=== PATIENT | male | born 1955 | race Caucasian/White ===

== ENCOUNTER → 2016-05-16 | Outpatient (CLI) | payer BC ==
[~2016-05-16] MED LIST: AGM875 PO; CIPR1TAB10 PO; NXM/40 PO; PRLSR20 PO; PROB1TAB16 PO
[2016-05-16 17:21] LABS: BASO % 0.4 %; BASO ABS # 0.05 K/uL (0-0.2); COMPLETE YES; EOS % 0.3 %; HEMATOCRIT 44.2 % (42-52); IG% 0.2 %; LYMPH % 9.9 %; LYMPH ABS # 1.37 K/uL (1.2-3.4); MEAN CELL VOLUME 86.7 fL (80-100); MEAN CORPUSCULAR HEMOGLOBIN 29.4 pg (25-34); MEAN CORPUSCULAR HGB CONC 33.9 g/dl (32-36); MEAN PLATELET VOLUME 11.4 fL (7.4-10.4); MONO % 6.5 %; NEUT % 82.7 %; PLATELET COUNT 308 K/uL (130-400); WHITE BLOOD COUNT 13.79 K/uL (4.8-10.8)
[2016-05-16 17:47] LABS: MANUAL MICROSCOPIC REQUIRED? NO; REVIEW REQ? NO; URINE APPEARANCE CLEAR (CLEAR); URINE BILIRUBIN NEG (NEG); URINE COLOR DK YELLOW; URINE EPITHELIAL CELL AUTO 0-5 /lpf (0-5); URINE NITRITE POS (NEG); URINE SPECIFIC GRAVITY 1.029 (1.000-1.030); UROBILINOGEN NEG (NEG)
[2016-05-16 18:18] LABS: ALT/SGPT 36 U/L (12-78); AMYLASE 41 U/L (25-115); AST/SGOT 17 U/L (15-37); BLOOD UREA NITROGEN 12 mg/dl (7-18); BUN/CREATININE RATIO 9.3 (10-20); CALCIUM 8.8 mg/dl (8.5-10.1); CARBON DIOXIDE 22 mmol/L (21-32); CHLORIDE 107 mmol/L (98-107); GLUCOSE 173 mg/dl (70-99); POTASSIUM 3.5 mmol/L (3.5-5.1); SODIUM 141 mmol/L (136-145)
[2016-05-16 18:20] LABS: ALKALINE PHOSPHATASE 83 U/L (45-117)
== END | disposition home or self-care (01) ==
LOC: C.LABBC 14:09
PROVIDERS: ATTEND Family Medicine
DX: R10.9 Unspecified abdominal pain (principal)

== ENCOUNTER → 2016-05-20 | Outpatient (CLI) | payer BC ==
[~2016-05-20] MED LIST changes: +OPTIRAY 320 IV PRN
--- NOTE | 2016-05-20 11:37 | DIAGNOSTIC IMAGING REPORT ---
CT ABD/PELVIS IV AND ORAL CONT CLINICAL HISTORY: Diarrhea and diffuse abdominal pain COMPARISON STUDY: 04/22/2007 TECHNIQUE: Following the IV administration of 119 mL of Optiray-320, CT scan of the abdomen and pelvis was performed from the lung bases to the proximal femurs. Images are reviewed in the axial, sagittal, and coronal planes. IV contrast was administered without complication. CT DOSE: 491.77 mGycm FINDINGS: Lower chest: The heart is normal in size and configuration, without pericardial effusion. The lung bases and pleural spaces are clear. Liver: The contrast-enhanced liver is normal in size, contour, and attenuation. There is no intrahepatic biliary ductal dilatation. The hepatic veins and portal veins are patent. Gallbladder: Unremarkable. Spleen: Normal in size and attenuation. Pancreas: Unremarkable. Adrenal glands: Unremarkable. Kidneys: There is symmetric renal cortical enhancement. The kidneys are normal in size without hydronephrosis. Bowel: There are no transition zones to indicate bowel obstruction. The appendix appears normal. There is sigmoid diverticulosis. There are no acute peridiverticular inflammatory changes. Peritoneum: There is no intraperitoneal free air or abdominal ascites. Vasculature: The abdominal aorta is normal in course and caliber. Adenopathy: None. Pelvic viscera: The bladder, and pelvic viscera are unremarkable. Skeletal structures: No destructive osseous lesions are seen. IMPRESSION: 1. No acute intra-abdominal or pelvic findings 2. No evidence of bowel obstruction. No evidence of free air 3. Normal appendix 4. Diverticulosis. No evidence of acute diverticulitis. Electronically signed by: Jaya Adorno M.D. 05/20/2016 11:35 AM Dictated Date/Time: 05/20/2016 11:30 AM
== END | disposition home or self-care (01) ==
LOC: C.CTS 08:49
PROVIDERS: ATTEND Family Medicine
DX: R19.7 Diarrhea, unspecified (principal); R10.9 Unspecified abdominal pain; K57.30 Diverticulosis of large intestine without perforation or abscess without bleeding

== ENCOUNTER → 2016-07-06 | Day surgery (SDC) | payer BC ==
[2016-06-09 08:59] VITALS: BMI 22.0
[~2016-07-06] VITALS: Ht 180.3 cm; Wt 72.7 kg
[~2016-07-06] MED LIST changes: -AGM875 PO; +LIDOCAINE HCL 2% 2 ML VIAL (20MG/ML) ONE; +MIDAZOLAM HCL 1 MG/ML 2ML VIAL ONE; -NXM/40 PO; +ONDANSETRON INJ 2 MG/ML 2 ML VIAL ONE; -OPTIRAY 320 IV PRN; +PROPOFOL IV EMULSION 10 MG/ML 20 ML VIAL IV ONE; +SODIUM CHLORIDE 0.9% 500ML 500 ML IV ONE
[2016-07-06 12:26] VITALS: Ht 180.3 cm; Wt 72.7 kg
[2016-07-06 12:37] VITALS: TEMP 36.8
--- NOTE | 2016-07-06 12:57 | Endo History and Physical ---
History & Physical Date of Service: Jul 06, 2016. Chief Complaint: ABDOMINAL PAIN, RECTAL LESION Referring Physician: DR AMBER MADRID History of Present Illness 60 yo CM who presents for colonoscopy secondary to abdominal pain and rectal lesion. Past Surgical History Hx Cardiac Surgery: No Hx Internal Defibrillator: No Hx Pacemaker: No Hx Abdominal Surgery: No Hx of Implantable Prosthesis: No Hx Post-Op Nausea and Vomiting: No Hx Cancer Surgery: No Hx Thoracic Surgery: No Hx Orthopedic: No Hx Urinary Tract Surgery: No Family History None Social History Smoking Status: Never Smoker Hx Substance Use: No Hx Alcohol Use: No Allergies Coded Allergies: No Known Allergies (Verified , NONE, 07/06/16) Current Medications Reported Home Medications Medications Dose Route/Sig Max Daily Dose Days Date Category Probiotic (Probiotic Product) 1 Tab Tab 1 Tab PO QAM 06/09/16 Reported Prilosec (Omeprazole) 20 Mg Capcr 20 Mg PO QAM 06/09/16 Reported Vital Signs Weight (Kilograms): 72.73 Height (Feet): 5 Height (Inches): 11 Date Time Temp Pulse Resp B/P Pulse Ox O2 Delivery O2 Flow Rate FiO2 07/06/16 12:37 36.8 65 20 127/78 100 Room Air Physical Exam General Appearance: WD/WN, no apparent distress Respiratory/Chest: Auscultation: breath sounds normal Cardiovascular: Heart Auscultation: RRR Abdomen: Bowel Sounds: normal Inspection & Palpation: soft, non-distended, no tenderness, guarding & rebound Assessment and Plan Assessment: 60 yo CM who presents for colonoscopy secondary to abdominal pain and rectal lesion. Plan: Proceed with colonoscopy.
--- NOTE | 2016-07-06 13:11 | Discharge Instructions ---
Endoscopy Patient Instructions Date / Procedure(s) Performed Jul 06, 2016. Colonoscopy Allergy Information Coded Allergies: No Known Allergies (Verified , NONE, 07/06/16) Discharge Date / Findings Jul 06, 2016. Inflammation of Anal canal Random colon biopsies Stool studies collected Medication Instructions OK to resume all medications today as prescribed Reported Home Medications Medications Dose Route/Sig Max Daily Dose Days Date Category Probiotic (Probiotic Product) 1 Tab Tab 1 Tab PO QAM 06/09/16 Reported Prilosec (Omeprazole) 20 Mg Capcr 20 Mg PO QAM 06/09/16 Reported Provider Instructions Activity Restrictions - No exercising or heavy lifting for 24 hours. - Do not drink alcohol the day of the procedure. - Do not drive a car or operate machinery until the day after the procedure. - Do not make any important decisions or sign important papers in 24 hours after the procedure. Following Day: - Return to full activity which may include returning to work/school. Diet Start your diet with liquids and light foods (jello, soup, juice, toast). Then eat your usual diet if not nauseated. Treatment For Common After Affects For mild abdominal pain, bloating, or excessive gas: - Rest - Eat lightly - Lie on right side Schedule Dermatology evaluation for anal canal inflammation Follow-Up Information Follow-up with DR AMBER MADRID as scheduled Anesthesia Information What You Should Know You have had a procedure that required some medicine to reduce anxiety and discomfort. This treatment is called moderate sedation. After receiving the treatment, you may be sleepy, but you will be able to breathe on your own. The effects of the treatment may last for several hours. Follow these instructions along with Activity/Diet recommendations noted above: * Do NOT do anything where dizziness or clumsiness would be dangerous. * Rest quietly at home today, then you can be up and about tomorrow. * Have a responsible person stay with you the rest of today. * You may have had an I.V. today. If so, you may take the dressing off later today. Recommendations Call your doctor if: * Trouble breathing * Continuous vomiting for more than 24 hours * Temperature above 101 degrees * Severe abdominal pain or bloating * Pain not relieved by pain medicine ordered * There is increased drainage or redness from any incision * A large amount of rectal bleeding greater than 2-3 tablespoons. (If you had a polyp/s removed or have hemorrhoids, a small amount of blood - from the rectum is to be expected.) * You have any unanswered questions or concerns. IN THE EVENT OF A SERIOUS EMERGENCY, GO TO THE NEAREST EMERGENCY ROOM Your discharge instructions were prepared by provider Mathieu Hicks. Patient Instructions Signature Page Weston Bright Patient (or Guardian) Signature/Date: I have read and understand the instructions given to me by my caregivers. Caregiver/RN/Doctor Signature/Date: The above-named patient and/or guardian has received patient instructions on this date. + Original Patient Signature Page (only) stays with chart. Please make copy for patient.
--- NOTE | 2016-07-06 13:22 | GI REPORT ---
Procedure Date: 07/06/2016 12:40 PM Procedure: Colonoscopy Indications: Generalized abdominal pain, Chronic diarrhea Medicines: Monitored Anesthesia Care Complications: No immediate complications. Estimated Blood Loss: Estimated blood loss: none. Procedure: Pre-Anesthesia Assessment: - Prior to the procedure, a History and Physical was performed, and patient medications and allergies were reviewed. The patient's tolerance of previous anesthesia was also reviewed. The risks and benefits of the procedure and the sedation options and risks were discussed with the patient. All questions were answered, and informed consent was obtained. Prior Anticoagulants: The patient has taken no previous anticoagulant or antiplatelet agents. ASA Grade Assessment: II - A patient with mild systemic disease. After reviewing the risks and benefits, the patient was deemed in satisfactory condition to undergo the procedure. After I obtained informed consent, the scope was passed under direct vision. Throughout the procedure, the patient's blood pressure, pulse, and oxygen saturations were monitored continuously. The Scope was introduced through the anus and advanced to the terminal ileum. The colonoscopy was performed without difficulty. The patient tolerated the procedure well. The quality of the bowel preparation was good. The terminal ileum, ileocecal valve, appendiceal orifice, and rectum were photographed. Findings: The colon (entire examined portion) appeared normal. Several random biopsies were obtained with cold forceps for histology in the entire colon. Fluid aspiration for cytology was performed. The perianal exam findings include a perianal rash. Impression: - The entire examined colon is normal. Fluid aspiration performed. - Perianal rash found on perianal exam. - Several random biopsies were obtained in the entire colon. Recommendation: - Resume previous diet. - Continue present medications. - Await pathology results. - Return to primary care physician as previously scheduled. Mathieu Hicks DO 07/06/2016 1:21:26 PM This report has been signed electronically. Note Initiated On: 07/06/2016 12:40 PM I attest to the content of the Intraoperative Record and orders documented therein, exceptions below
--- NOTE | 2016-07-06 13:37 | Anesthesiology Progress Note ---
Anesthesia Post Op Note Date & Time Jul 06, 2016 at 13:37 Vital Signs Pain Intensity: 0 Vital Signs Past 12 Hours Date Time Temp Pulse Resp B/P Pulse Ox O2 Delivery O2 Flow Rate FiO2 07/06/16 13:30 70 20 106/55 97 Room Air 07/06/16 13:15 62 20 103/48 98 Room Air 07/06/16 12:37 36.8 65 20 127/78 100 Room Air Notes Mental Status: alert / awake / arousable, participated in evaluation Pt Amnestic to Procedure: Yes Nausea / Vomiting: adequately controlled Pain: adequately controlled Airway Patency, RR, SpO2: stable & adequate BP & HR: stable & adequate Hydration State: stable & adequate Anesthetic Complications: no major complications apparent
[2016-07-06 13:45] VITALS: BP 115/72; PULSE 63; O2SAT 100
== END | disposition home or self-care (01) ==
LOC: C.GI 12:01
PROVIDERS: ATTEND Internal Medicine
DX: R19.7 Diarrhea, unspecified (principal); R10.31 Right lower quadrant pain; R10.32 Left lower quadrant pain; K62.9 Disease of anus and rectum, unspecified; M54.5 Low back pain

== ENCOUNTER → 2016-12-05 | Outpatient (CLI) | payer BC ==
[~2016-12-05] MED LIST changes: -CIPR1TAB10 PO; -LIDOCAINE HCL 2% 2 ML VIAL (20MG/ML) ONE; -MIDAZOLAM HCL 1 MG/ML 2ML VIAL ONE; -ONDANSETRON INJ 2 MG/ML 2 ML VIAL ONE; -PROPOFOL IV EMULSION 10 MG/ML 20 ML VIAL IV ONE; -SODIUM CHLORIDE 0.9% 500ML 500 ML IV ONE
[2016-12-05 09:38] LABS: BASO % 0.8 %; BASO ABS # 0.06 K/uL (0-0.2); COMPLETE YES; EOS % 2.5 %; HEMATOCRIT 45.8 % (42-52); IG% 0.3 %; LYMPH % 37.1 %; LYMPH ABS # 2.66 K/uL (1.2-3.4); MEAN CELL VOLUME 85.1 fL (80-100); MEAN CORPUSCULAR HEMOGLOBIN 29.2 pg (25-34); MEAN CORPUSCULAR HGB CONC 34.3 g/dl (32-36); MEAN PLATELET VOLUME 11.1 fL (7.4-10.4); MONO % 8.8 %; NEUT % 50.5 %; PLATELET COUNT 336 K/uL (130-400); RED BLOOD COUNT 5.38 M/uL (4.7-6.1); WHITE BLOOD COUNT 7.17 K/uL (4.8-10.8)
[2016-12-05 10:01] LABS: BLOOD UREA NITROGEN 14 mg/dl (7-18); BUN/CREATININE RATIO 11.4 (10-20); CALCIUM 8.9 mg/dl (8.5-10.1); CARBON DIOXIDE 29 mmol/L (21-32); CHLORIDE 107 mmol/L (98-107); CHOLESTEROL 170 mg/dl (0-200); GLUCOSE 90 mg/dl (70-99); POTASSIUM 3.8 mmol/L (3.5-5.1); SODIUM 141 mmol/L (136-145)
[2016-12-05 10:11] LABS: CHOLESTEROL/HDL RATIO 2.7; HDL CHOLESTEROL 63 mg/dl; LDL CHOLESTEROL CALCULATED 82 mg/dl; TRIGLYCERIDES 123 mg/dl (0-150); VERY LOW DENSITY LIPOPROT CALC 25 mg/dl
== END | disposition home or self-care (01) ==
LOC: C.LAB1850 07:35
PROVIDERS: ATTEND Family Medicine
DX: Z00.00 Encounter for general adult medical examination without abnormal findings (principal); Z12.5 Encounter for screening for malignant neoplasm of prostate; Z13.220 Encounter for screening for lipoid disorders; E04.1 Nontoxic single thyroid nodule

== ENCOUNTER → 2017-04-07 | Outpatient (CLI) | payer BC | END | disposition home or self-care (01) | LOC: C.LABSPEC 17:36 | PROVIDERS: ATTEND Nurse Practitioner Family | DX: R30.0 Dysuria (principal) ==

== ENCOUNTER → 2017-07-04 | Outpatient (CLI) | payer BC ==
--- NOTE | 2017-07-04 08:26 | DIAGNOSTIC IMAGING REPORT ---
KUB CLINICAL HISTORY: 61 years-old Male presenting with N40.0 Benign prostate [id number]. TECHNIQUE: Single supine view of the abdomen was obtained. COMPARISON: 05/20/2016. FINDINGS: Nonobstructive bowel gas pattern. Mild stool burden. No gross pneumoperitoneum. Allowing for bowel gas and stool, no calcifications to suggest nephrolithiasis. Calcifications in the midline pelvis may be intraprostatic. Atherosclerosis. Osseous structures normal. Lung bases clear. IMPRESSION: 1. No acute intra-abdominal pathology. 2. Intraprostatic calcifications may relate to the presence of benign prostatic hyperplasia. Electronically signed by: Art Ramos M.D. 07/04/2017 8:24 AM Dictated Date/Time: 07/04/2017 8:23 AM
== END | disposition home or self-care (01) ==
LOC: C.RAD 07:51
PROVIDERS: ATTEND Urology
DX: N40.0 Benign prostatic hyperplasia without lower urinary tract symptoms (principal)

== ENCOUNTER 2018-11-24 09:22 | Inpatient (IN) ==
--- NOTE | 2018-11-24 09:33 | Emergency Department Note ---
ED Provider Note CHIEF COMPLAINT: Right flank pain, nausea and vomiting HISTORY OF PRESENTING ILLNESS: This is a 63-year-old male past medical history significant for GERD and kidney stones, who presents to the emergency department by private vehicle with complaint of severe right sided flank pain, nausea and vomiting. The patient was evaluated in the emergency department on 11/23 and diagnosed with a right-sided kidney stone. He states he has been taking oxycodone, ibuprofen and Tylenol and using Zofran, but his pain has been unrelieved and his nausea vomiting has been uncontrolled. He denies any fevers or chills. He denies any chest pain, shortness of breath, dizziness or syncope, headaches, diarrhea or constipation, gross hematuria, or unusual rash. He reports a history of frequent kidney stones followed by Dr. Vega for this, he denies any problems passing stones in the past and has never required intervention previously. REVIEW OF SYSTEMS: A complete 10 point review of systems was reviewed with the patient with pertinent positives and negatives as per history of present illness. All else were negative. PAST MEDICAL HISTORY: GERD, kidney stones SOCIAL HISTORY: Lives at home with his spouse, denies tobacco use, reports occasional alcohol use ALLERGIES: No known allergies PHYSICAL EXAM: CONSTITUTIONAL: Pleasant and cooperative. Nontoxic-appearing and in no acute distress, but appears significantly uncomfortable from pain. Moderately dehydrated. HEENT: Normocephalic, atraumatic. PERRL, EOMI. Pharynx normal. Dry mucous me mories. NECK: Supple, full active range of motion without discomfort. RESPIRATORY: Clear to auscultation bilaterally with no wheezing, crackles, rhonchi or stridor. Equal expansion bilaterally. CARDIOVASCULAR: Regular rate and rhythm with no murmurs, rubs or gallops. Normal peripheral perfusion. No edema. GASTROINTESTINAL: Right flank and lower quadrant abdominal pain, positive guarding. No rebound tenderness. Abdomen is soft and nondistended. No palpable masses or HSM. Bowel sounds present in all quadrants. Right-sided CVA tenderness. MUSCULOSKELETAL: Full range of motion of all joints without discomfort. INTEGUMENTARY: No rash or other significant dermatologic conditions noted. NEUROLOGIC: Alert and oriented X 4 with normal affect. Normal strength and sensation in all 4 tremors. Normal speech. Normal gait observed. ED COURSE AND MEDICAL DECISION MAKING: CC: Patient presenting with complaint of right flank pain, nausea and vomiting DIFFERENTIAL DIAGNOSIS: Includes, but not limited to ureteral stone, UTI, pyelonephritis, INTERPRETATION OF LABS: Leukocytosis, no anemia, normal platelets, no significant electrolyte abnormalities, BUN and creatinine slightly elevated (t his appears improved from previous labs), elevated T bili, liver enzymes otherwise normal, normal lipase. UA shows large ketones and large blood, appears to be negative for infection. Urine culture pending. IMAGING: EXAMINATION: RENAL ULTRASOUND CLINICAL HISTORY: right flank pain, 3mm dist ureteral stone COMPARISON STUDY: CT scan dated 11/23/2018 FINDINGS: The right kidney measures 12.2 cm. The left kidney measures 10.8 cm. There is mild dilatation of the right renal pelvis and proximal ureter. There is trace fluid adjacent to the lower pole. There is no left-sided hydronephrosis. There are no renal masses. Neither ureteral jet was visualized. IMPRESSION : 1. Mild dilatation of the right renal pelvis and proximal right ureter. Trace fluid adjacent the lower pole of the right kidney. 2. Neither ureteral jet was visualized. EKG: Shows sinus bradycardia with a rate of 46 bpm, normal intervals, no ST or T wave abnormalities, no ectopy, rate has decreased by 28 bpm, no other significant change when compared to previous EKG from 11/16/2008 by my interpretation. MEDICATION RECONCILIATION: I attest that I have personally reviewed the patient's current medication list. INITIAL VITAL SIGNS REVIEW: I reviewed the patient's initial vital signs and interpret them as follows: T: Afebrile; BP: Hypertensive; HR: Bradycardic; RR: Within normal limits; Pulse Ox: Within normal limits on room air. Blood pressure screening: The patient was found to have an elevated blood pressure, which was felt to be situational. MDM SUMMARY: Patient was evaluated at bedside, history and physical exam performed. Patient is alert and oriented, in no acute distress, but appears uncomfortable from pain, pacing in the room and holding his right side. Patient is tender to palpation in the right flank and right lower quadrant and also has some mild right CVA tenderness. Patient is afebrile and nontoxic-appearing. He does appear to be moderately dehydrated. Orders were placed at bedside for labs, UA, IV fluid bolus for hydration, IV Toradol for pain, IV Zofran for nausea, renal ultrasound to evaluate for worsening hydronephrosis secondary to known right-sided ureteral stone. Patient discussed with Dr. Kern, who agrees with my assessment, plan, and disposition. Labs and imaging reviewed as above, labs notable for some mild leukocytosis and elevated T bili, which I suspect is most likely related to frequent vomiting and dehydration. UA shows large ketones and blood, no apparent infection, culture pending. Renal ultrasound shows continued mild hydronephrosis, this does not appear to be significantly changed from CT imaging. Patient reassessed multiple times throughout ED stay, he remains in significant pain and has had persistent nausea and vomiting. He was given additional medication with IV morphine, IV Phenergan, and IV Ofirmev, and reassessed multiple times after these interventions. Patient does feel slightly improved, but continues to complain of severe pain and intermittent nausea with dry heaves. Given his persistent symptoms in the setting of an obstructing stone, I felt the patient would benefit from admission and he was agreeable to this plan. I spoke with Dr. Fitzgerald, urology, who agreed with the plan to bring the patient in for continued pain and nausea management. He will evaluate the patient in the morning for possible need of intervention. I spoke on the phone with Dr. Rivers, [facility], who agrees to evaluate the patient for admission. The patient was updated on all results and plan of care, he verbalized understanding. The patient was stable at time of admission. The chart was completed utilizing [employer] I/O Speech voice recognition software. Grammatical errors, random word insertions, pronoun errors, and incomplete sentences are an occasional consequence of this system due to software limitations, ambient noise, and hardware issues. Any formal questions or concerns about the content, text, or information contained within the body of this dictation should be directly addressed to the nurse practitioner for clarification. Impression & Plan Right distal ureteral calculus, Renal colic on right side, Intractable pain, Nausea and vomiting Past Med/Surg History Medical History Kidney stones No significant past surgical history Family History Father Pancreatic cancer Prostate cancer Kidney stones Brother Thyroid cancer Grandmother (Maternal) Stroke Social History Preferred Language: Slovak Communication Ability: Effective Beliefs That Will Affect Care: None Current Living Situation: Spouse current occupational status: employed Feels Safe at Home: Yes Smoking Status: Never smoker Hx Substance Use: No Dental Care, Regularly: Yes Results & Data Vital Signs Vital Signs - 24 hr 11/24/18 09:23 11/24/18 11:00 Temperature 36.7 C Temperature Source Oral Sepsis Recent Fever Within 48 Hours No Sepsis Action Taken by Nursing No Action Required Pulse Rate 47 L Pulse Rate [Left] 58 L Pulse Rhythm [Left] Regular Pulse Strength [Left] Normal Respiratory Rate 20 18 Respiratory Effort / Characteristics Non-Labored Spontaneous Respiratory Depth Normal Normal Respiratory Pattern Regular Blood Pressure 164/71 H Blood Pressure [Left Arm] 147/79 H Blood Pressure Mean 102 Blood Pressure Mean [Left Arm] 101 Blood Pressure Position [Left Arm] Lying Pulse Oximetry 100 97 Oxygen Delivery Method Room Air Room Air Laboratory Data Result diagrams: 11/24/18 09:43 11/24/18 09:43 Lab Results 11/24/18 11/24/18 11/24/18 Range/Units 09:43 09:43 09:45 WBC 15.68 H (4.8-10.8) K/uL RBC 5.26 (4.7-6.1) M/uL Hgb 15.7 (14.0-18.0) g/dL Hct 45.3 (42-52) % MCV 86.1 (80-100) fL MCH 29.8 (25-34) pg MCHC 34.7 (32-36) g/dL RDW Std Deviation 41.4 (36.4-46.3) fL RDW Coeff of Ivis 13.1 (11.5-14.5) % Plt Count 306 (130-400) K/uL MPV 11.1 H (7.4-10.4) fL Immature Gran % (Auto) 0.4 % Neut % (Auto) 76.9 % Lymph % (Auto) 15.9 % [place] % (Auto) 6.6 % Eos % (Auto) 0.0 % Baso % (Auto) 0.2 % Immature Gran # (Auto) 0.06 H (0.00-0.02) K/uL Neut # (Auto) 12.06 H (1.4-6.5) K/uL Lymph # (Auto) 2.50 (1.2-3.4) K/uL [place] # (Auto) 1.03 H (0.11-0.59) K/uL Eos # (Auto) 0.00 (0-0.5) K/uL Baso # (Auto) 0.03 (0-0.2) K/uL Sodium 141 (136-145) mmol/L Potassium 3.9 (3.5-5.1) mmol/L Chloride 109 H (98-107) mmol/L Carbon Dioxide 21 (21-32) mmol/L Anion Gap 11.0 (3-11) BUN 19 H (7-18) mg/dl Creatinine 1.42 H (0.6-1.4) mg/dl Est Cr Clr Drug Dosing Not Reportable Est GFR ( Amer) 61.3 Est GFR (Non-Af Amer) 52.9 BUN/Creatinine Ratio 13.2 (10-20) Glucose 113 H (70-99) mg/dl Calcium 9.4 (8.5-10.1) mg/dl Total Bilirubin 1.4 H (0.2-1) mg/dl AST 23 (15-37) U/L ALT 36 (12-78) U/L Alkaline Phosphatase 65 (45-117) U/L Total Protein 7.8 (6.4-8.2) gm/dl Albumin 4.3 (3.4-5.0) gm/dl Globulin 3.5 (2.5-4.0) gm/dl Albumin/Globulin Ratio 1.2 (0.9-2) Lipase 128 (73-393) U/L Urine Color Dark Yellow Urine Appearance Cloudy A (Clear) Urine pH 5.0 (4.5-7.5) Ur Specific [place] 1.029 (1.000-1.030) Urine Protein 1+ H (Negative) Urine Glucose (UA) Negative (Negative) Urine Ketones 3+ H (Negative) Urine Blood 3+ H (Negative) Urine Nitrite Negative (Negative) Urine Bilirubin Negative (Negative) Urine Urobilinogen Negative (Negative) Ur Leukocyte Esterase Negative (Negative) Urine WBC (Auto) 1-5 (0-5) /hpf Urine RBC (Auto) >30 H (0-4) /hpf U Hyaline Cast (Auto) 5-10 H (0-5) /lpf U Epithel Cells (Auto) >30 H (0-5) /lpf Urine Bacteria (Auto) Negative (Negative) Urine Mucus Present A (None Prsent) Administered Medications Potassium Chloride/Dextrose/Sod Cl (D5w And 1/2nss + 20meq Kcl) 20 meq in 1,000 mls @ 100 mls/hr IV .Q10H ROSEANNE Stop: 12/24/18 16:08 Last Admin: 11/24/18 16:59 Dose: 100 mls/hr Documented by: [id number] Discontinued Medications Sodium Chloride (Nss 1000ml) 1,000 mls @ 999 mls/hr IV .Q1H1M ROSEANNE Stop: 11/24/18 10:45 Last Infusion: 11/24/18 11:18 Dose: 0 mls/hr Documented by: [id number] Admin: 11/24/18 10:10 Dose: 999 mls/hr Documented by: [id number] Promethazine HCl (Phenergan) 12.5 mg in 50.5 mls @ 202 mls/hr IV NOW STA Stop: 11/24/18 11:40 Last Infusion: 11/24/18 12:05 Dose: 0 mls/hr Documented by: [id number] Admin: 11/24/18 11:35 Dose: 202 mls/hr Documented by: [id number] Acetaminophen (Ofirmev) 1,000 mg in 100 mls @ 400 mls/hr IV NOW STA Stop: 11/24/18 13:31 Last Infusion: 11/24/18 13:45 Dose: 0 mls/hr Documented by: [id number] Admin: 11/24/18 13:30 Dose: 400 mls/hr Documented by: [id number] Sodium Chloride (Nss 1000ml) 1,000 mls @ 999 mls/hr IV .Q1H1M ONE Stop: 11/24/18 14:43 Last Admin: 11/24/18 14:08 Dose: 999 mls/hr Documented by: [id number] Ketorolac Tromethamine (Toradol) 15 mg IV NOW STA Stop: 11/24/18 09:37 Last Admin: 11/24/18 10:09 Dose: 15 mg Documented by: [id number] Morphine Sulfate (Morphine Sulfate) 4 mg IV NOW STA Stop: 11/24/18 11:27 Last Admin: 11/24/18 11:35 Dose: 4 mg Documented by: [id number] Ondansetron HCl (Zofran) 4 mg IV NOW STA Stop: 11/24/18 09:37 Last Admin: 11/24/18 10:09 Dose: 4 mg Documented by: [id number] Tamsulosin HCl (Flomax) 0.4 mg PO NOW ONE Stop: 11/24/18 09:37 Last Admin: 11/24/18 10:29 Dose: 0.4 mg Documented by: [id number] Discharge Plan Visit Data *Final* Discharge Date/Time: 11/24/18 15:51 Chief Complaint: Kidney Stone Stated Complaint: KIDNEY STONE ED Provider: Quinten Kern ED Midlevel Provider: Rupal Alonzo Discharge Problem: Right distal ureteral calculus, Renal colic on right side, Intractable pain, Nausea and vomiting Patient Disposition: Admitted As Inpatient Condition: Good Discharge Instructions Interventions: ED Discharge Assessment Last Done: 11/24/18 15:51
[2018-11-24] MEDS ORDERED: ONDANSETRON INJ 2 MG/ML 2 ML VIAL IV STA (09:36)
[2018-11-24] MEDS ORDERED: TAMSULOSIN HCL 0.4 MG CAP PO ONE (09:36)
[2018-11-24] MEDS ORDERED: KETOROLAC TROMETHAMINE 15 MG/ML VIAL IV STA (09:36)
[2018-11-24] MEDS ORDERED: SODIUM CHLORIDE 0.9% 1000ML 1,000 ML IV SCH (09:45)
[2018-11-24 09:53] LABS: Basophils # (auto) 0.03 K/uL (0-0.2); Basophils % (auto) 0.2 %; Hematocrit (blood only) 45.3 % (42-52); Hemoglobin 15.7 g/dL (14.0-18.0); Immature Granulocytes # (auto) 0.06 K/uL (0.00-0.02); Immature Granulocytes % (auto) 0.4 %; Lymphocytes % (auto) 15.9 %; Mean Corpuscular Hgb Conc 34.7 g/dL (32-36); Mean Corpuscular Volume 86.1 fL (80-100); Mean Platelet Volume 11.1 fL (7.4-10.4); Monocytes # (auto) 1.03 K/uL (0.11-0.59); Monocytes % (auto) 6.6 %; Neutrophils # (auto) 12.06 K/uL (1.4-6.5); Neutrophils % (auto) 76.9 %; Platelet Count 306 K/uL (130-400); RDW Coefficient of Variation 13.1 % (11.5-14.5); RDW Standard Deviation 41.4 fL (36.4-46.3); Red Blood Count 5.26 M/uL (4.7-6.1); White Blood Count 15.68 K/uL (4.8-10.8)
[2018-11-24 09:58] LABS: Appearance Urine Cloudy (Clear); Bacteria Urine Automated Negative (Negative); Blood Urine 3+ (Negative); Color Urine Dark Yellow; Epithelial Cell Urine Auto >30 /lpf (0-5); Glucose Urine UA Negative (Negative); Leukocyte Esterase Urine Negative (Negative); Nitrite Urine Negative (Negative); Protein Urine 1+ (Negative); RBC Urine Automated >30 /hpf (0-4); Specific Gravity Urine 1.029 (1.000-1.030); Urobilinogen Urine Negative (Negative)
[2018-11-24 10:01] LABS: Bilirubin Urine Negative (Negative); Ictotest Urine Negative (Negative)
[2018-11-24 10:03] LABS: Ketones Urine 3+ (Negative)
[2018-11-24 10:10] LABS: Mucus Urine Present (None Prsent)
[2018-11-24 10:10] LABS: Alanine Aminotransferase 36 U/L (12-78); Albumin Level 4.3 gm/dl (3.4-5.0); Aspartate Aminotransferase 23 U/L (15-37); BUN Creatinine Ratio 13.2 (10-20); Blood Urea Nitrogen 19 mg/dl (7-18); Calcium 9.4 mg/dl (8.5-10.1); Carbon Dioxide 21 mmol/L (21-32); Chloride 109 mmol/L (98-107); Est GFR (African American) 61.3; Est GFR (Non-African American) 52.9; Glucose 113 mg/dl (70-99); Potassium 3.9 mmol/L (3.5-5.1); Sodium 141 mmol/L (136-145)
[2018-11-24 10:13] LABS: Albumin Globulin Ratio 1.2 (0.9-2); Alkaline Phosphatase 65 U/L (45-117); Bilirubin,Total 1.4 mg/dl (0.2-1); Globulin 3.5 gm/dl (2.5-4.0); Total Protein 7.8 gm/dl (6.4-8.2)
[2018-11-24] MEDS ORDERED: MoRPHine SULFATE 4 MG/ML 1 ML CARP\\VIAL IV STA (11:26)
[2018-11-24] MEDS ORDERED: PROMETHAZINE 12.5 MG/50.5 ML BAG IV STA (11:26)
--- NOTE | 2018-11-24 12:09 | Ultrasound Report ---
EXAMINATION: RENAL ULTRASOUND CLINICAL HISTORY: right flank pain, 3mm dist ureteral stone COMPARISON STUDY: CT scan dated 11/23/2018 FINDINGS: The right kidney measures 12.2 cm. The left kidney measures 10.8 cm. There is mild dilatat ion of the right renal pelvis and proximal ureter. There is trace fluid adjacent to the lower pole. T here is no left-sided hydronephrosis. There are no renal masses. Neither ureteral jet was visualized. IMPRESSION : 1. Mild dilatation of the right renal pelvis and proximal right ureter. Trace fluid adjacent the lowe r pole of the right kidney. 2. Neither ureteral jet was visualized. Electronically signed by: Jaya Adorno M.D. 11/24/2018 12:08 PM
[2018-11-24] MEDS ORDERED: ACETAMINOPHEN 1,000 MG/100 ML VIAL IV STA (13:17)
[2018-11-24] MEDS ORDERED: SODIUM CHLORIDE 0.9% 1000ML 1,000 ML IV ONE (13:43)
--- NOTE | 2018-11-24 15:39 | History & Physical Report ---
Date of Service November 24, 2018 Assessment & Plan (1) Renal colic on right side: Pt with hx of same with similar sx, failed outpt management Stone noted on CTAP 2 days ago, not seen on US today Renal US as noted morphine, oxycodon, zofran Flomas scheduled IVF UA noted, cx pending No signs of infection Urology c/s pending Elevated WBC and cr Clears today, NPO after midnight (2) ARF (acute renal failure): Related to above with low PO intake and likely dehydration from n/v monitor on IVF Will hold further toradol given elevated cr (3) DVT prophylaxis: SCDs in case of need or OR intervention (4) Chronic reflux esophagitis: continue home meds History of Present Illness Primary Care Provider: Vel Hwang, DO 63 y/o M c/o worsening renal stone. Pt states he has had renal stone episodes about 6 times in his life. He had lower R sided back pain about 2 weeks ago. This is the same region he also has pain with his kidney stones. He took meloxicam and it resolved. Over the last several days, he had a return of his pain, but more intense and with n/v. He was seen in the ED 2 days ago and dx with R sided renal stone. He was sent home with oxycodone and zofran. This was helping initially, however today his pain became more severe with worsening n/v. He has not been able to eat in 2 days. Most of his pain is R lower back, but it does occasionally move around to his lower pelvis. He did have flomax at home and took one of those today. Pt does feel somewhat improved s/p IVF and pain meds in the ED. He has been straining his urine but has not seen a stone or chuck material. Pt denies fever, SOB, chest pain, c/d, LE pain or swelling. Allergies Allergy/AdvReac Type Severity Reaction Status Date / Time No Known Drug Allergies Allergy Unknown Verified 11/24/18 10:58 Home Medications Home Medications Medication Instructions Recorded Confirmed Type omeprazole 20 mg capsule,delayed 20 mg PO QAM #90 cap 10/23/18 11/24/18 History release ondansetron HCl [Zofran] 4 mg PO Q6H #10 tab 11/23/18 11/24/18 Rx oxycodone 5 mg PO Q6H PRN #14 tab 11/23/18 11/24/18 Rx ibuprofen 200 mg PO Q6H PRN 11/24/18 11/24/18 History Past Med/Surg History Medical History Kidney stones No significant past surgical history Family History Father Pancreatic cancer Prostate cancer Kidney stones Brother Thyroid cancer Grandmother (Maternal) Stroke Social History Current Living Situation: Spouse current occupational status: employed Feels Safe at Home: Yes Smoking Status: Never smoker Hx Alcohol Use: Yes Alcohol type: beer, wine and hard liquor Alcohol Intake Frequency: Rarely Hx Substance Use: No Dental Care, Regularly: Yes Review of Systems Review of Systems: Pertinent positives and negatives reviewed in HPI--all others negative Physical Exam Constitutional: WD/WN, vitals as above Eyes: normal visual booker by confrontation and + anicteric sclerae Neck: normal visual inspection and trachea midline Respiratory: normal respiratory effort, lungs clear to auscultation Cardiovascular: Rate/Rhythm: regular rate and regular rhythm Gastrointestinal (Abdomen): Inspection/Auscultation: abdomen not distended Percussion/Palpation: + abdomen tender (lower R lateral abd) and abdomen soft Musculoskeletal: Head/Neck/Chest: normocephalic and head atraumatic negative for edema, peripheral pulses intact Skin: no rashes, warm and dry Neurologic: awake; not confused Speech / Cognition: normal speech Psychiatric: A+Ox3, euthymic affect Results & Data Vital Signs (Past 12 Hours) Vital Signs Temp Pulse Pulse Resp BP BP Pulse Ox 11/24/18 11:00 58 L 18 147/79 H 97 11/24/18 09:23 36.7 C 47 L 20 164/71 H 100 Diagnostic Findings Renal US: R sided renal pelvis and proximal R ureter distention. No stone noted ECG Rhythm: sinus bradycardia Code Status & VTE Plan Code Status Full code VTE Prophylaxis Plan VTE Prophylaxis will be ordered: Yes PG Care Time/CCT Total # of Minutes Spent Total Time Spent with Patient: Total time spent is greater than 50% in coordination of care (as documented) at patient's floor/unit and/or counseling patient:
[2018-11-24] MEDS ORDERED: MoRPHine SULFATE 2 MG/ML CARP IV PRN ×2 (16:09→20:33)
[2018-11-24] MEDS ORDERED: OXYCODONE HCL IR 5 MG TAB (IMMEDIATE RELEASE) PO PRN (16:09)
[2018-11-24] MEDS ORDERED: ACETAMINOPHEN 325 MG TAB PO PRN (16:09)
[2018-11-24] MEDS ORDERED: ONDANSETRON INJ 2 MG/ML 2 ML VIAL IV PRN (16:09)
[2018-11-24] MEDS ORDERED: MAGNESIUM HYDROXIDE SUSP 30 ML UDC PO PRN (16:09)
[2018-11-24] MEDS: D5W AND 1/2NSS + 20MEQ KCL 20 MEQ/1,000 ML BAG IV SCH (16:59)
[2018-11-24] MEDS ORDERED: TAMSULOSIN HCL 0.4 MG CAP PO SCH (21:00)
[2018-11-25] MEDS: D5W AND 1/2NSS + 20MEQ KCL 20 MEQ/1,000 ML BAG IV SCH (03:18)
[2018-11-25 06:40] LABS: Basophils # (auto) 0.05 K/uL (0-0.2); Basophils % (auto) 0.6 %; Eosinophils # (auto) 0.05 K/uL (0-0.5); Eosinophils % (auto) 0.6 %; Hemoglobin 12.4 g/dL (14.0-18.0); Immature Granulocytes # (auto) 0.02 K/uL (0.00-0.02); Immature Granulocytes % (auto) 0.2 %; Lymphocytes # (auto) 3.12 K/uL (1.2-3.4); Lymphocytes % (auto) 36.1 %; Mean Corpuscular Hgb Conc 33.5 g/dL (32-36); Mean Corpuscular Volume 87.7 fL (80-100); Mean Platelet Volume 10.6 fL (7.4-10.4); Monocytes # (auto) 0.73 K/uL (0.11-0.59); Monocytes % (auto) 8.4 %; Neutrophils # (auto) 4.67 K/uL (1.4-6.5); Neutrophils % (auto) 54.1 %; Platelet Count 213 K/uL (130-400); RDW Coefficient of Variation 13.3 % (11.5-14.5); RDW Standard Deviation 42.7 fL (36.4-46.3); Red Blood Count 4.22 M/uL (4.7-6.1); White Blood Count 8.64 K/uL (4.8-10.8)
[2018-11-25 06:54] LABS: BUN Creatinine Ratio 15.1 (10-20); Calcium 8.1 mg/dl (8.5-10.1); Creatinine Clr Calc Pharmacy 68.3 ml/min; Est GFR (Non-African American) 65.5; Potassium 3.9 mmol/L (3.5-5.1)
[2018-11-25] MEDS ORDERED: PANTOprazole 40 MG TAB PO SCH (09:00)
--- NOTE | 2018-11-26 21:57 | Discharge Summary ---
Date of Service November 25, 2018 Admission HPI Per Admitting Provider 63 y/o M c/o worsening renal stone. Pt states he has had renal stone episodes about 6 times in his life. He had lower R sided back pain about 2 weeks ago. This is the same region he also has pain with his kidney stones. He took meloxicam and it resolved. Over the last several days, he had a return of his pain, but more intense and with n/v. He was seen in the ED 2 days ago and dx with R sided renal stone. He was sent home with oxycodone and zofran. This was helping initially, however today his pain became more severe with worsening n/v. He has not been able to eat in 2 days. Most of his pain is R lower back, but it does occasionally move around to his lower pelvis. He did have flomax at home and took one of those today. Pt does feel somewhat improved s/p IVF and pain meds in the ED. He has been straining his urine but has not seen a stone or chuck material. Pt denies fever, SOB, chest pain, c/d, LE pain or swelling. Principal Diagnosis right nephrolithiasis Discharge Exam Constitutional: WD/WN, vitals as above Eyes: normal visual booker by confrontation and + anicteric sclerae Neck: normal visual inspection and trachea midline Respiratory: normal respiratory effort, lungs clear to auscultation Cardiovascular: Rate/Rhythm: regular rate and regular rhythm Gastrointestinal (Abdomen): Inspection/Auscultation: abdomen not distended Percussion/Palpation: + abdomen nontender and abdomen soft Musculoskeletal: Head/Neck/Chest: normocephalic and head atraumatic negative for edema, peripheral pulses intact Skin: no rashes, warm and dry Neurologic: awake; not confused Speech / Cognition: normal speech Psychiatric: A+Ox3, euthymic affect Discharge Data Allergies Allergy/AdvReac Type Severity Reaction Status Date / Time No Known Drug Allergies Allergy Unknown Verified 11/24/18 10:58 Consultations 11/24/18 15:15 ED Decision to Admit Stat 11/24/18 16:09 Consult Urology Routine 11/25/18 10:14 Consult [facility] double back operator Routine Ordered Studies 11/24/18 10:15 US renal/blad retro comp Stat Hospital Course (1) Renal colic on right side: Pt with hx of same with similar sx, failed outpt management Stone noted on CTAP 2 days ago, not seen on US today Renal US as noted morphine, oxycodon, zofran Flomas scheduled IVF UA noted, cx pending No signs of infection Urology c/s pending Elevated WBC and cr Clears today, NPO after midnight On day 2 of hospital stay: Patient reports pain had subsided and he feels close to baseline. Patient is requesting discharge. Patient will be f/u with Urology. (2) ARF (acute renal failure): Related to above with low PO intake and likely dehydration from n/v monitor on IVF (3) DVT prophylaxis: SCDs in case of need or OR intervention (4) Chronic reflux esophagitis: continue home meds Total Time Total Time Spent Total Time Spent (In Minutes): 32 Discharge Plan Discharge Items Patient Disposition: Home - Self-Care Reason For Visit: KIDNEY STONE Discharge Diagnosis: Kidney stone Condition: Good Discharge Goals: Decrease discomfort Activity: Resume your previous activity Non-emergency contact: Primary Care Provider Call non-emergency contact if: you have any medication questions Follow-up/Referrals: Vel Hwang DO [Primary Care Provider] - Diet: Regular Addtl Provider Instructions: Recommend followup with PCP and Urology in 1-2 weeks Prescriptions: New tamsulosin 0.4 mg Capsule 0.4 mg PO HS Qty: 30 RF: 0 Continued omeprazole 20 mg capsule,delayed release(DR/EC) 20 mg PO QAM Qty: 90 RF: 0 ibuprofen 200 mg Tablet 200 mg PO Q6H PRN (Reason: Pain) RF: 0 acidophilus-pectin, citrus [Acidophilus Probiotic] 100 million cell-10 mg Capsule PO RF: 0 ondansetron HCl [Zofran] 4 mg tablet 4 mg PO Q6H Qty: 10 RF: 0 oxycodone 5 mg tablet 5 mg PO Q6H PRN (Reason: pain) Qty: 14 RF: 0 Stand-Alone Forms: Living Proof, Opioid Pain Management [employer]/Other Patient Handouts: Kidney Stones Risk, Kidney Stones, Kidney Stones Identify Discharge Orders: Discharge Order (Routine); Ordered 11/25/18 Ordered By: Brandon Warren Admission Data Admit Date/Time: 11/24/18 15:31 Attending Provider: Brandon Warren Admit Provider: Xenia Rivers Primary Care Provider: Vel Hwang Service: Medical Other Interventions: Discharge Summary Assessment (RN) Last Done: 11/25/18 10:26 DC Date/Time DO NOT enter until pt leaves facility: 11/25/18 11:48
[2018-12-04 08:34] LABS: Component 2 DNR; Source Kidney
== END 2018-11-25 11:48 | disposition home or self-care (01) | DRG 694 ==
LOC: ED 09:22 → SUATTDRO 15:31 → 3N 15:31
DX: R11.2 Nausea with vomiting, unspecified; Z84.1 Family history of disorders of kidney and ureter; N23 Unspecified renal colic; Z79.899 Other long term (current) drug therapy; E86.0 Dehydration; N17.9 Acute kidney failure, unspecified; Z87.442 Personal history of urinary calculi; K21.0 Gastro-esophageal reflux disease with esophagitis